=== PATIENT | female | born 1950 | race African-American/Black ===

== ENCOUNTER 2025-01-31 20:24 | Inpatient (IN) | payer MEDICARE ==
[~2025-01-31] VITALS: Ht 170.2 cm; Wt 125.0 kg
[~2025-01-31 20:24] MED LIST: AMLO10TA80 MT; ASPI-1497 MT; ATEN50TA MT; ATOR40TA70 MT; CHOL400D7 MT; DOXA2TAB2 MT; FINE10TA; FISH1CAP63 PO; INSLIS SUBCUT; LOSA1TAB40 MT; METO10TA16 MT
[2025-01-31] MEDS: SODIUM CHLORIDE 0.9% 1,000 ML IV ONE (22:11)
[2025-01-31 22:13] LABS: BASOPHILS % 0.2 % (0.0-2.0); EOSINOPHILS % 0.4 % (0.0-5.0); HEMATOCRIT. 36.2 % (36.0-48.0); HEMOGLOBIN. 11.5 g/dL (12.0-16.0); LYMPHOCYTES % 7.5 % (20.0-50.0); MEAN CORPUSCULAR HEMOGLOBIN 28.3 pg (28.0-32.0); MEAN CORPUSCULAR HGB CONC 31.8 g/dL (31.0-37.0); MEAN CORPUSCULAR VOLUME 89.1 fL (81.0-99.0); MEAN PLATELET VOLUME 8.3 fl (7.4-10.4); MONOCYTES % 5.1 % (2.0-8.0); NEUTROPHILS % 86.8 % (40.0-76.0); PLATELET 244 x1000/uL (130-400); RED BLOOD CELL COUNT 4.06 mill/uL (4.2-5.4); RED CELL DISTRIBUTION WIDTH 13.7 % (11.6-14.6); WHITE BLOOD COUNT 11.4 x1000/uL (4.5-11.0)
[2025-01-31 22:29] LABS: PROTHROMBIN TIME 11.2 sec (9.6-11.0)
[2025-01-31 22:43] LABS: CARBON DIOXIDE 26 mEq/L (21-32); CHLORIDE 98 mEq/L (98-107); POTASSIUM 4.4 mEq/L (3.5-5.1); SODIUM 134 mEq/L (136-145)
[2025-01-31 22:44] LABS: CALCIUM 8.5 mg/dL (8.7-10.4)
[2025-01-31 22:49] LABS: CREATININE 2.2 mg/dL (0.6-1.0); UREA NITROGEN BLOOD 33 mg/dL (9-23)
[2025-01-31 22:50] LABS: ALANINE AMINOTRANSFERASE < 7 IU/L (10-49)
[2025-01-31 22:51] LABS: ALBUMIN 3.3 g/dL (3.2-4.8); ASPARTATE AMINOTRANSFERASE 10 IU/L (<34); BILIRUBIN DIRECT 0.1 mg/dL (<=3.0); BILIRUBIN TOTAL 0.5 mg/dL (0.1-1.0); PROTEIN TOTAL 6.7 g/dL (6.0-8.3)
[2025-01-31 22:52] LABS: GLUCOSE 430 mg/dL (70-105); TROPONIN I HIGH SENSITIVITY 86 ng/L (3.0-34)
[2025-01-31] MEDS: INSULIN REGULAR (HUMULIN R) 1000UNITS/10ML VIAL SUBCUT ONE (23:45)
[2025-02-01] MEDS: DILTIAZEM HCL 5MG/ML 5ML VIAL IV ONE ×2 (01:25→02:35)
[2025-02-01] MEDS: CEFTRIAXONE 2GM/50ML 50 ML IV ONE (01:38)
[2025-02-01] MEDS: INSULIN REGULAR (HUMULIN R) 1000UNITS/10ML VIAL SUBCUT NR (01:41)
[2025-02-01 02:10] LABS: TROPONIN I HIGH SENSITIVITY 348 ng/L (3.0-34)
[2025-02-01] MEDS ORDERED: HYDROCORTISONE 1% RECTAL CREAM 30GM PR PRN (02:30)
[2025-02-01] MEDS: AZITHROMYCIN 500MG/250ML 250 ML IV STA (02:41)
[2025-02-01] MEDS: ENOXAPARIN 40MG/0.4ML SYR SUBCUT ONE (02:47)
[2025-02-01] MEDS: DILTIAZEM HCL 30MG TABLET PO ONE (02:47)
[2025-02-01] MEDS ORDERED: HYDROCORTISONE 2.5% TOP PRN (02:56)
[2025-02-01] MEDS ORDERED: HYDROCORTISONE 1% CREAM 30GM TOP PRN (02:57)
[2025-02-01] MEDS: DILTIAZEM HCL 5MG/ML 5ML VIAL IV NR (05:55)
[2025-02-01] MEDS ORDERED: DEXTROSE 50% WATER 50ML SYRINGE IV PRN (14:15)
[2025-02-01] MEDS ORDERED: ONDANSETRON HCL 4MG/2ML INJ IV PRN (14:15)
[2025-02-01 14:22] LABS: CLARITY URINE CLEAR (CLEAR); COLOR URINE YELLOW (YELLOW); GLUCOSE URINE TRACE (NEGATIVE); KETONES URINE TRACE (NEGATIVE); LEUKOCYTE ESTERASE URINE TRACE (NEGATIVE); NITRITE URINE NEGATIVE (NEGATIVE); OCCULT BLOOD URINE NEGATIVE (NEGATIVE); PROTEIN URINE 3+ (NEGATIVE); SPECIFIC GRAVITY URINE 1.019 (1.005-1.030)
[2025-02-01 14:39] LABS: SQUAMOUS EPITHELIAL CELL URINE 1+ /lpf (RARE/1+)
[2025-02-01 14:40] LABS: BACTERIA URINE 2+; YEAST URINE NONE SEEN
[2025-02-01 14:42] LABS: RBC URINE 0-2 /hpf (0-2)
[2025-02-01 16:55] LABS: HEMOGLOBIN 12.3 g/dL (12.0-16.0); MEAN CORPUSCULAR HGB CONC 31.5 g/dL (31.0-37.0); MEAN CORPUSCULAR VOLUME 88.7 fL (81.0-99.0); PLATELET 237 x1000/uL (130-400); RED BLOOD CELL COUNT 4.39 mill/uL (4.2-5.4); WHITE BLOOD COUNT 16.8 x1000/uL (4.5-11.0)
[2025-02-01 17:04] LABS: CHLORIDE 101 mEq/L (98-107); POTASSIUM 4.3 mEq/L (3.5-5.1); SODIUM 137 mEq/L (136-145)
[2025-02-01 17:05] LABS: CALCIUM 8.4 mg/dL (8.7-10.4); CARBON DIOXIDE 26 mEq/L (21-32)
[2025-02-01 17:10] LABS: CREATININE 1.9 mg/dL (0.6-1.0); GLUCOSE 295 mg/dL (70-105); UREA NITROGEN BLOOD 27 mg/dL (9-23)
[2025-02-01 17:12] LABS: ALANINE AMINOTRANSFERASE < 7 IU/L (10-49); ALBUMIN 3.2 g/dL (3.2-4.8); ASPARTATE AMINOTRANSFERASE 10 IU/L (<34); BILIRUBIN TOTAL 0.6 mg/dL (0.1-1.0); PROTEIN TOTAL 6.6 g/dL (6.0-8.3)
[2025-02-01] MEDS: INSULIN LISPRO 100 UNITS/ML SUBCUT SCH (17:15)
[2025-02-01 17:56] VITALS: BP 115/73; PULSE 61; RESP 18; TEMP 37
[2025-02-01] MEDS: BLOOD SUGAR DIAGNOSTIC STRIP TEST SCH (18:53)
[2025-02-01] MEDS: DILTIAZEM HCL 60MG TABLET PO SCH (19:04)
[2025-02-01] MEDS ORDERED: INFLUENZA VACCINE 05/PF 0.5 ML SYRINGE IM ONE (19:30)
[2025-02-01 20:00] VITALS: BP 127/50; PULSE 53; RESP 18; TEMP 38.3; O2SAT 96
[2025-02-01] MEDS: CEFTRIAXONE 1GM/50ML 50 ML IV SCH (23:24)
[2025-02-02] VITALS: BP 146/49; PULSE 56; RESP 18; TEMP 37.4; O2SAT 100
[2025-02-02 04:00] VITALS: BP 154/102; PULSE 73; RESP 18; TEMP 35.6; O2SAT 100
[2025-02-02 08:00] VITALS: BP 129/45; PULSE 93; RESP 18; TEMP 36.1; O2SAT 100
[2025-02-02] MEDS: AZITHROMYCIN 250 MG TABLET PO SCH (09:22)
[2025-02-02 12:00] VITALS: BP 132/48; PULSE 76; RESP 17; TEMP 36.5; O2SAT 100
[2025-02-02] MEDS ORDERED: VANCOMYCIN 2,000 MG in SODIUM CHLORIDE 0.9% 500 ML IV NR (15:30)
[2025-02-02 16:00] VITALS: BP 148/50; PULSE 114; RESP 16; TEMP 36.4; O2SAT 97
[2025-02-02] MEDS: VANCOMYCIN 2,000 MG in SODIUM CHLORIDE 0.9% 500 ML IV NR (17:15)
[2025-02-02 20:00] VITALS: BP 120/65; PULSE 87; RESP 16; TEMP 36.4; O2SAT 100
[2025-02-02] MEDS: INSULIN GLARGINE 100 UNITS/ML SUBCUT SCH (22:10)
[2025-02-03] VITALS: BP 116/83; PULSE 86; RESP 17; TEMP 36.8; O2SAT 96
[2025-02-03 04:00] VITALS: BP 149/81; PULSE 54; RESP 16; TEMP 37; O2SAT 99
[2025-02-03 07:56] LABS: INFLUENZA TYPE A Presumptive Negative (Pres. Neg.)
[2025-02-03 07:58] LABS: INFLUENZA TYPE B Presumptive Negative (Pres. Neg.)
[2025-02-03 08:00] VITALS: BP 142/58; PULSE 57; RESP 20; TEMP 36.8; O2SAT 99
[2025-02-03 08:34] LABS: BASOPHILS % 0.3 % (0.0-2.0); EOSINOPHILS % 1.9 % (0.0-5.0); HEMATOCRIT. 36.8 % (36.0-48.0); LYMPHOCYTES % 13.9 % (20.0-50.0); MEAN CORPUSCULAR HEMOGLOBIN 28.2 pg (28.0-32.0); MEAN CORPUSCULAR HGB CONC 32.6 g/dL (31.0-37.0); MEAN CORPUSCULAR VOLUME 86.4 fL (81.0-99.0); MEAN PLATELET VOLUME 8.5 fl (7.4-10.4); MONOCYTES % 6.2 % (2.0-8.0); NEUTROPHILS % 77.7 % (40.0-76.0); PLATELET 236 x1000/uL (130-400); RED BLOOD CELL COUNT 4.25 mill/uL (4.2-5.4); RED CELL DISTRIBUTION WIDTH 14.3 % (11.6-14.6); WHITE BLOOD COUNT 11.9 x1000/uL (4.5-11.0)
[2025-02-03 08:46] LABS: POTASSIUM 4.2 mEq/L (3.5-5.1)
[2025-02-03 08:48] LABS: CALCIUM 8.4 mg/dL (8.7-10.4)
[2025-02-03 08:52] LABS: CREATININE 2.2 mg/dL (0.6-1.0)
[2025-02-03 12:00] VITALS: BP 142/67; PULSE 80; RESP 16; TEMP 36.4; O2SAT 99
[2025-02-03 16:00] VITALS: BP 123/45; PULSE 80; RESP 18; TEMP 36.4; O2SAT 99
[2025-02-03] MEDS: NEOMY SULF/BACITRAC ZN/POLY OINT 28GM TOP SCH (18:57)
[2025-02-03 20:00] VITALS: BP 110/55; PULSE 57; RESP 18; TEMP 37.3; O2SAT 96
[2025-02-04] VITALS: BP 131/53; PULSE 52; RESP 19; TEMP 36.7; O2SAT 100
[2025-02-04] MEDS: CEFTRIAXONE 1GM/50ML 50 ML IV SCH ×2 (00:17→22:15)
[2025-02-04] MEDS: ACETAMINOPHEN 325MG TABLET PO PRN (00:19)
[2025-02-04] MEDS ORDERED: ZOLPIDEM TARTRATE 5MG TABLET PO PRN (02:00)
[2025-02-04 04:00] VITALS: BP 126/58; PULSE 75; RESP 20; TEMP 36.9; O2SAT 100
[2025-02-04 07:12] LABS: EOSINOPHILS % 2.2 % (0.0-5.0); HEMATOCRIT. 36.1 % (36.0-48.0); HEMOGLOBIN. 11.7 g/dL (12.0-16.0); LYMPHOCYTES % 20.7 % (20.0-50.0); MEAN CORPUSCULAR HEMOGLOBIN 28.1 pg (28.0-32.0); MEAN CORPUSCULAR HGB CONC 32.5 g/dL (31.0-37.0); MEAN CORPUSCULAR VOLUME 86.3 fL (81.0-99.0); MEAN PLATELET VOLUME 8.9 fl (7.4-10.4); MONOCYTES % 7.2 % (2.0-8.0); NEUTROPHILS % 68.9 % (40.0-76.0); PLATELET 284 x1000/uL (130-400); RED BLOOD CELL COUNT 4.18 mill/uL (4.2-5.4); RED CELL DISTRIBUTION WIDTH 14.1 % (11.6-14.6); WHITE BLOOD COUNT 9.6 x1000/uL (4.5-11.0)
[2025-02-04 07:17] LABS: POTASSIUM 4.1 mEq/L (3.5-5.1)
[2025-02-04 07:18] LABS: CALCIUM 8.6 mg/dL (8.7-10.4)
[2025-02-04 07:23] LABS: CREATININE 2.3 mg/dL (0.6-1.0)
[2025-02-04] MEDS: VANCOMYCIN 1.25GM PMX (XELLIA) 250 ML IV NR (15:00)
[2025-02-04 16:00] VITALS: BP 107/84; PULSE 99; RESP 18; TEMP 36.8; O2SAT 98
[2025-02-04] MEDS ORDERED: VANCOMYCIN 1.25GM/250ML IV SCH (16:30)
[2025-02-04 20:00] VITALS: BP 142/83; PULSE 89; RESP 18; TEMP 36.7; O2SAT 100
[2025-02-04] MEDS: INSULIN GLARGINE 100 UNITS/ML SUBCUT SCH (22:13)
[2025-02-04] MEDS: NEOMYCIN/BACITRACIN/POLYMYXIN OINT 14GM TOP SCH (23:00)
[2025-02-05] VITALS: BP 111/65; PULSE 75; RESP 19; TEMP 36.5; O2SAT 100
[2025-02-05 04:00] VITALS: BP 158/88; PULSE 81; RESP 18; TEMP 36.3; O2SAT 100
[2025-02-05 08:00] VITALS: BP 147/81; PULSE 98; RESP 19; TEMP 37.8; O2SAT 100
[2025-02-05 08:14] LABS: BASOPHILS % 0.4 % (0.0-2.0); EOSINOPHILS % 0.8 % (0.0-5.0); HEMATOCRIT. 37.2 % (36.0-48.0); LYMPHOCYTES % 12.3 % (20.0-50.0); MEAN CORPUSCULAR HEMOGLOBIN 27.6 pg (28.0-32.0); MEAN CORPUSCULAR HGB CONC 32.1 g/dL (31.0-37.0); MEAN CORPUSCULAR VOLUME 85.8 fL (81.0-99.0); MEAN PLATELET VOLUME 8.8 fl (7.4-10.4); MONOCYTES % 6.8 % (2.0-8.0); NEUTROPHILS % 79.7 % (40.0-76.0); PLATELET 339 x1000/uL (130-400); RED BLOOD CELL COUNT 4.33 mill/uL (4.2-5.4); WHITE BLOOD COUNT 14.5 x1000/uL (4.5-11.0)
[2025-02-05 08:16] LABS: CARBON DIOXIDE 28 mEq/L (21-32); CHLORIDE 100 mEq/L (98-107); POTASSIUM 4.2 mEq/L (3.5-5.1); SODIUM 137 mEq/L (136-145)
[2025-02-05 08:17] LABS: CALCIUM 8.8 mg/dL (8.7-10.4)
[2025-02-05 08:22] LABS: CREATININE 1.8 mg/dL (0.6-1.0); GLUCOSE 266 mg/dL (70-105); UREA NITROGEN BLOOD 40 mg/dL (9-23)
[2025-02-05] MEDS ORDERED: LOPERAMIDE HCL 2MG CAPSULE PO PRN (09:15)
[2025-02-05 12:00] VITALS: BP 121/48; PULSE 61; RESP 18; TEMP 38.6; O2SAT 97
[2025-02-05] MEDS: VANCOMYCIN 1GM/200ML PMX (BAXTER) IV SCH (13:48)
[2025-02-05 16:00] VITALS: BP 126/72; PULSE 78; RESP 18; TEMP 36.9; O2SAT 97
[2025-02-06] VITALS: BP 122/75; PULSE 76; RESP 16; TEMP 36.3; O2SAT 97
[2025-02-06 04:00] VITALS: PULSE 84; RESP 17; TEMP 36.9; O2SAT 97
[2025-02-06 08:00] VITALS: BP 119/57; PULSE 137; RESP 20; TEMP 36.3; O2SAT 95
[2025-02-06 12:00] VITALS: BP 120/62; PULSE 136; RESP 20; TEMP 36.1; O2SAT 96
[2025-02-06 16:00] VITALS: BP 130/80; PULSE 134; RESP 19; TEMP 36.3; O2SAT 97
[2025-02-06 20:00] VITALS: BP 137/79; PULSE 102; RESP 16; TEMP 36.6; O2SAT 95
[2025-02-07] VITALS: BP 116/75; PULSE 114; RESP 16; TEMP 37.1; O2SAT 95
[2025-02-07 04:00] VITALS: BP 126/79; PULSE 133; RESP 16; TEMP 36.2; O2SAT 94
[2025-02-07 08:00] VITALS: BP 122/68; PULSE 135; RESP 18; TEMP 36.2; O2SAT 96
[2025-02-07 10:23] LABS: POTASSIUM 4.8 mEq/L (3.5-5.1)
[2025-02-07 10:24] LABS: CALCIUM 8.8 mg/dL (8.7-10.4)
[2025-02-07 10:48] LABS: CREATININE 2.5 mg/dL (0.6-1.0)
[2025-02-07] MEDS: VANCOMYCIN 1GM/200ML PMX (BAXTER) IV SCH (11:30)
[2025-02-07 12:00] VITALS: BP 121/73; PULSE 134; RESP 20; TEMP 36.6; O2SAT 95
[2025-02-07 16:00] VITALS: BP 135/70; PULSE 120; RESP 20; TEMP 36.8; O2SAT 97
[2025-02-07 20:00] VITALS: BP 139/79; PULSE 79; RESP 19; TEMP 36; O2SAT 97
[2025-02-08] VITALS (7 sets, daily range): BP systolic 112–149; BP diastolic 60–82; PULSE 86–137; RESP 18–19; TEMP 36.3–36.6; O2SAT 98–100
[2025-02-08 06:56] LABS: POTASSIUM 5.5 mEq/L (3.5-5.1)
[2025-02-08 06:58] LABS: CALCIUM 8.6 mg/dL (8.7-10.4)
[2025-02-08 07:02] LABS: CREATININE 2.5 mg/dL (0.6-1.0)
[2025-02-08] MEDS: SODIUM ZIRCONIUM CYCLOSILICATE 10GM/PACKET PO NR (11:27)
[2025-02-08] MEDS: ENOXAPARIN 120MG/0.8ML SYR SUBCUT SCH (11:28)
[2025-02-08 16:58] LABS: BASOPHILS % 1.3 % (0.0-2.0); EOSINOPHILS % 2.9 % (0.0-5.0); HEMOGLOBIN. 11.9 g/dL (12.0-16.0); LYMPHOCYTES % 25.7 % (20.0-50.0); MEAN CORPUSCULAR HEMOGLOBIN 27.9 pg (28.0-32.0); MEAN CORPUSCULAR HGB CONC 32.1 g/dL (31.0-37.0); MEAN PLATELET VOLUME 8.5 fl (7.4-10.4); MONOCYTES % 6.3 % (2.0-8.0); NEUTROPHILS % 63.8 % (40.0-76.0); PLATELET 322 x1000/uL (130-400); RED BLOOD CELL COUNT 4.25 mill/uL (4.2-5.4); RED CELL DISTRIBUTION WIDTH 14.5 % (11.6-14.6); WHITE BLOOD COUNT 9.9 x1000/uL (4.5-11.0)
[2025-02-08] MEDS: VANCOMYCIN 1G PREMIX 200 ML IV NR (18:00)
[2025-02-09] VITALS (7 sets, daily range): BP systolic 112–182; BP diastolic 69–83; PULSE 71–138; RESP 18–20; TEMP 36.1–36.9; O2SAT 97–100
[2025-02-09] MEDS ORDERED: LIDOCAINE HCL 1% 10 MG/ML 10ML VIAL ONE (08:27)
[2025-02-09] MEDS: DIGOXIN 500MCG/2ML AMP IV SCH (12:59)
[2025-02-09] MEDS: DILTIAZEM HCL 90MG TABLET PO SCH (12:59)
[2025-02-09] MEDS: AMIODARONE 200MG TABLET PO SCH (13:05)
[2025-02-09] MEDS: VANCOMYCIN 1GM/200ML PMX (BAXTER) IV NR (16:53)
[2025-02-09] MEDS ORDERED: DOCUSATE SODIUM 100MG CAPSULE PO PRN (23:00)
[2025-02-09] MEDS: ZOLPIDEM TARTRATE 5MG TABLET PO PRN (23:10)
[2025-02-10] VITALS: BP 120/54; PULSE 102; RESP 18; TEMP 36.6; O2SAT 100
[2025-02-10] MEDS: DOCUSATE SODIUM 250MG CAPSULE PO PRN (00:32)
[2025-02-10 04:00] VITALS: BP 136/57; PULSE 101; RESP 18; TEMP 36.7; O2SAT 98
[2025-02-10 08:00] VITALS: BP 118/58; PULSE 130; RESP 20; TEMP 36.2; O2SAT 98
[2025-02-10] MEDS: FUROSEMIDE 40MG/4ML VIAL IVP NR (10:38)
[2025-02-10] MEDS: DIGOXIN 500MCG/2ML AMP IV NR (11:03)
[2025-02-10 12:00] VITALS: BP 156/63; PULSE 132; RESP 18; TEMP 36.8; O2SAT 97
[2025-02-10 16:00] VITALS: BP 139/57; PULSE 90; RESP 18; TEMP 36.8; O2SAT 99
[2025-02-10 18:54] LABS: POTASSIUM 5.1 mEq/L (3.5-5.1)
[2025-02-10 18:55] LABS: CALCIUM 8.4 mg/dL (8.7-10.4)
[2025-02-10 19:00] LABS: CREATININE 2.1 mg/dL (0.6-1.0)
[2025-02-10 20:00] VITALS: BP 129/50; PULSE 85; RESP 16; TEMP 36.6; O2SAT 99
[2025-02-11] VITALS (7 sets, daily range): BP systolic 117–143; BP diastolic 44–85; PULSE 60–93; RESP 18–20; TEMP 35.9–36.7; O2SAT 98–100
[2025-02-11 06:29] LABS: POTASSIUM 4.7 mEq/L (3.5-5.1)
[2025-02-11 06:30] LABS: CALCIUM 8.6 mg/dL (8.7-10.4)
[2025-02-11 06:35] LABS: CREATININE 2.2 mg/dL (0.6-1.0)
[2025-02-11] MEDS: VANCOMYCIN 1GM/200ML PMX (BAXTER) IV NR (15:28)
== END 2025-02-11 23:30 | DRG 871 ==
LOC: ER 20:43 → 5WST 02-01 00:53 → EDBEDREQTM 02-01 01:10 → EDBEDREQ 02-01 01:10 → 7EST 02-03 23:35 → 5WST 02-07 06:20
PROVIDERS: ADMIT Internal Medicine; ATTEND Internal Medicine
PROC: 02HV33Z Insertion of Infusion Device into Superior Vena Cava, Percutaneous Approach (ICD-10-PCS; principal; 2025-02-09)
PROC: B5181ZA Fluoroscopy of Superior Vena Cava using Low Osmolar Contrast, Guidance (ICD-10-PCS; 2025-02-09)
PROC: B548ZZA Ultrasonography of Superior Vena Cava, Guidance (ICD-10-PCS; 2025-02-09)
DX: A41.02 Sepsis due to Methicillin resistant Staphylococcus aureus (principal); I21.A1 Myocardial infarction type 2; I48.92 Unspecified atrial flutter; Z68.41 Body mass index [BMI] 40.0-44.9, adult; L02.212 Cutaneous abscess of back [any part, except buttock and flank]; I13.0 Hypertensive heart and chronic kidney disease with heart failure and stage 1 through stage 4 chronic kidney disease, or unspecified chronic kidney disease; L03.312 Cellulitis of back [any part except buttock and flank]; Z20.822 Contact with and (suspected) exposure to COVID-19; G90.89 Other disorders of autonomic nervous system; N18.9 Chronic kidney disease, unspecified; E66.01 Morbid (severe) obesity due to excess calories; E11.22 Type 2 diabetes mellitus with diabetic chronic kidney disease; I50.9 Heart failure, unspecified; E11.65 Type 2 diabetes mellitus with hyperglycemia; I48.91 Unspecified atrial fibrillation; E78.5 Hyperlipidemia, unspecified
CPT/HCPCS: 36415; 36573; 71045; 80048; 80053; 80076; 80202; 81003; 82962; 83605; 83880; 84145; 84484; 85025; 85027; 87015; 87045; 87077; 87186; 87426; 87427; 87449; 87804; 93005; 93306; 97162; 97166; 97535; 99291; A4606; C1725; C1893; J0456; J0696; J1160; J1650; J1815; J1940; J2003; J3370; J3490; J7030; J7040

== ENCOUNTER 2025-02-12 01:21 | Emergency (ER) | payer MEDICARE ==
[~2025-02-12] VITALS: Ht 167.6 cm; Wt 113.0 kg
[2025-02-12 01:33] VITALS: O2SAT 99
[2025-02-12 09:30] VITALS: BP 162/89; PULSE 64; RESP 20; TEMP 36.6; O2SAT 100
== END 2025-02-12 10:00 ==
LOC: ER 01:21
DX: E11.65 Type 2 diabetes mellitus with hyperglycemia (principal); I10 Essential (primary) hypertension; Z79.899 Other long term (current) drug therapy
CPT/HCPCS: 82962; 93005; 99285